=== PATIENT | female | born 1960 | race Caucasian/White ===

== ENCOUNTER 2021-05-12 09:48 | Inpatient (IN) ==
--- NOTE | 2021-05-12 10:14 | Emergency Department Note ---
Impression & Plan Chest pain, Arm pain, Abnormal EKG ED Provider Note NAME: DAREN MYLES AGE: 60 SEX: F : 1960 ARRIVES VIA: Walk-In INFORMANT: Patient, ED PROVIDER(S): David Burns DO CHIEF COMPLAINT: Chest pain HPI: The patient is a 60-year-old female who presented to the emergency department for an evaluation of discomfort in her upper extremity. The patient describes right forearm discomfort which she describes a throbbing sensation. This began last evening overnight. She called her primary care physician and was referred to the emergency department for evaluation. The patient had a cardiac catheterization in [place] on the of this month. She states at that time she had coronary artery disease and the culprit lesion was stented however they did have other abnormalities that required stenting that they were going to do on follow-up but she had received too high of a dye load and this was deferred until the patient came home. She states that she was started on all new medications. Previously she had no medical history and was on no medications. She was started on Brilinta as well as a beta-thanh. She has been compliant with her outpatient medications. She denies having any lower extremity swelling or pain. She denies having any difficulty breathing or nausea at this time. She states the symptoms are similar to when she had a cardiac event in [place]. ROS: See above HPI for pertinent positives & negatives. A total of 10 systems reviewed and were otherwise negative. PAST MEDICAL HISTORY: See Below PAST SURGICAL HISTORY: See Below FAMILY HISTORY: See Below SOCIAL HISTORY: See Below HOME MEDICATIONS: See Below ALLERGIES: See Below VITALS: See Below PHYSICAL EXAMINATION: GENERAL: Patient is awake alert in no acute distress patient is resting comf ortably and showing no signs of anxiety EYES: The conjunctivae are clear. The pupils are round and reactive. EARS, NOSE, MOUTH AND THROAT: The nose is without any evidence of any deformity. NECK: The neck is nontender and supple. RESPIRATORY: Normal respiratory effort is noted there is no evidence of wheezing rhonchi or rales CARDIOVASCULAR: Regular rate and rhythm noted there no murmurs rubs or gallops normal S1 normal S2. GASTROINTESTINAL: The abdomen is soft. Abdomen is nontender. MUSCULOSKELETAL/EXTREMITIES: There is no evidence of gross deformity full range of motion is noted in the hips and shoulders. SKIN: There is no obvious evidence of any rash. There are no petechiae, pallor or cyanosis noted. Pulses are symmetric in both wrist. There is ecchymosis noted over the right wrist especially over the distal forearm. There is no bruit noted to auscultation over the right wrist. NEUROLOGIC: Patient is awake alert and oriented x3. MEDICAL DECISION MAKING: The patient is a 60-year-old female who presented to emergency department for an evaluation of upper extremity pain. The patient had similar pain in the past which turned out to be an NSTEMI. The patient had a cardiac catheterization with stenting 7 days ago. The patient presented to the emergency department today because of ongoing symptoms which were similar to her previous NSTEMI. Her EKG shows some abnormalities which could be consistent with her recent cardiac event but she also has a history of a coronary artery lesion that was not stented. For this reason I discussed her case with the on-call [facility]. They have agreed to evaluate the patient in the emergency department. Triage Nursing notes reviewed. Prior medical records reviewed Vital Signs: reviewed and remarkable for no significant abnormalities Differential diagnosis: Cardiac ischemia, aortic dissection, pulmonary embolism, pneumothorax, pneumonia, pericarditis, myocarditis, esophageal rupture, GERD, cholecystitis, pancreatitis, musculoskeletal, as well as other pathologies. ER treatment provided: See below Diagnostics interpreted by me: ECG: EKG was obtained in the emergency department. My interpretation is normal sinus rhythm at 61 bpm. There is no ectopy. Inferior and low lateral ST depressions with T wave versions were noted. This was compared to a tracing from January 15, 2001. The changes are new compared to the earlier tracing. Cardiac Monitoring: An order was placed for continuous cardiac monitoring. The monitor shows a rate of 98 bpm with sinus rhythm. Laboratory studies: As stated above and show below. Imaging studies: See below Consultation(s): I discussed this case with Lary who is on-call for the [facility] group Past Med/Surg History Medical History (Updated 05/12/21 @ 16:09 by David Burns DO) Coronary artery disease Surgical History (Updated 05/12/21 @ 14:05 by Karon Lewis PA-C) History of cardiac catheterization History of coronary artery stent placement Family History (Updated 05/12/21 @ 14:07 by Karon Lewis PA-C) Father Coronary heart disease Lung cancer Cerebral aneurysm Social History Smoking Status: Former smoker Preferred Language: Guamanian Feels Safe at Home: Yes Allergies Allergies Allergy/AdvReac Type Severity Reaction Status Date / Time codeine Allergy Vomiting Verified 05/12/21 10:49 Home Meds Home Medications Medication Instructions Recorded Confirmed aspirin 81 mg chewable tablet 81 mg PO QAM 05/12/21 05/12/21 atorvastatin 40 mg tablet 40 mg PO HS 05/12/21 05/12/21 [id number] 333 mg-133 1 tab PO BID 05/12/21 05/12/21 mg-8.3 mg tablet metoprolol tartrate 50 mg tablet 25 mg PO BID 05/12/21 05/12/21 ticagrelor 90 mg tablet (Brilinta) 90 mg PO BID 05/12/21 05/12/21 Results & Data (ED) Vital Signs Vital Signs - 24 hr 05/12/21 09:55 05/12/21 10:25 05/12/21 11:00 Temperature 36.4 C L Temperature Source Temporal Artery Scan Pulse Rate 67 Pulse Rate [Apical] 62 55 L Pulse Rhythm Regular Pulse Strength Normal Respiratory Rate 18 17 18 Respiratory Effort / Characteristics Non-Labored Spontaneous Respiratory Depth Normal Respiratory Pattern Regular Blood Pressure 126/85 Blood Pressure [Right Arm] 141/92 H 129/77 Blood Pressure Mean 98 Blood Pressure Mean [Right Arm] 108 94 Blood Pressure Position Sitting Pulse Oximetry 100 99 99 Oxygen Delivery Method Room Air Room Air Room Air Sepsis Recent Fever Within 48 Hours No Sepsis New/Unexplained Change in Mental Status No Sepsis Action Taken by Nursing No Action Required Home Medications Current Medication List: was personally reviewed by me Laboratory Data Attestation: I reviewed the patient's lab results. Result diagrams: 05/12/21 10:25 05/12/21 12:21 Lab Results 05/12/21 05/12/21 05/12/21 Range/Units 10:25 10:25 10:25 WBC 5.38 (4.8-10.8) K/uL RBC 4.41 (4.2-5.4) M/uL Hgb 14.1 (12.0-16.0) g/dL Hct 41.2 (37-47) % MCV 93.4 (80-100) fL MCH 32.0 (25-34) pg MCHC 34.2 (32-36) g/dL RDW Std Deviation 38.7 (36.4-46.3) fL RDW Coeff of Tylor 11.4 L (11.5-14.5) % Plt Count 372 (130-400) K/uL MPV 10.0 (7.4-10.4) fL Immature Gran % (Auto) 0.2 % Neut % (Auto) 64.2 % Lymph % (Auto) 25.5 % [place] % (Auto) 8.6 % Eos % (Auto) 1.1 % Baso % (Auto) 0.4 % Neut # (Auto) 3.46 (1.4-6.5) K/uL Lymph # (Auto) 1.37 (1.2-3.4) K/uL [place] # (Auto) 0.46 (0.11-0.59) K/uL Eos # (Auto) 0.06 (0-0.5) K/uL Baso # (Auto) 0.02 (0-0.2) K/uL Immature Gran # (Auto) 0.01 (0.00-0.02) K/uL PT Cancelled INR Cancelled APTT Cancelled PTT Ratio Cancelled Sodium 137 (136-145) mmol/L Potassium TNP Chloride 105 (98-107) mmol/L Carbon Dioxide 24 (21-32) mmol/L Anion Gap 8 (3-11) BUN 14 (6-23) mg/dl Creatinine 0.82 (0.6-1.2) mg/dl Est Cr Clr Drug Dosing 78.6 ml/min Est GFR ( Amer) 90.8 ml/min Est GFR (Non-Af Amer) 78.3 ml/min BUN/Creatinine Ratio 17.1 (10-20) Glucose 96 (70-99(Fasting)) mg/dl Calcium 9.9 (8.5-10.1) mg/dl Total Bilirubin 0.6 (0.2-1.0) mg/dl AST TNP ALT 25 (7-52) U/L Alkaline Phosphatase 71 (34-104) U/L Total Creatine Kinase 56 (26-192) U/L Troponin I 0.04 (0-0.04) ng/ml Total Protein 8.0 (6.0-8.3) gm/dl Albumin 4.7 (3.4-5.0) gm/dl Globulin 3.3 (2.5-4.0) gm/dl Albumin/Globulin Ratio 1.4 (0.9-2) Lipase 40 (11-82) U/L SARS-CoV-2, RNA, NAAT (NEGATIVE) 05/12/21 05/12/21 05/12/21 Range/Units 10:29 12:21 12:21 WBC (4.8-10.8) K/uL RBC (4.2-5.4) M/uL Hgb (12.0-16.0) g/dL Hct (37-47) % MCV (80-100) fL MCH (25-34) pg MCHC (32-36) g/dL RDW Std Deviation (36.4-46.3) fL RDW Coeff of Tylor (11.5-14.5) % Plt Count (130-400) K/uL MPV (7.4-10.4) fL Immature Gran % (Auto) % Neut % (Auto) % Lymph % (Auto) % [place] % (Auto) % Eos % (Auto) % Baso % (Auto) % Neut # (Auto) (1.4-6.5) K/uL Lymph # (Auto) (1.2-3.4) K/uL [place] # (Auto) (0.11-0.59) K/uL Eos # (Auto) (0-0.5) K/uL Baso # (Auto) (0-0.2) K/uL Immature Gran # (Auto) (0.00-0.02) K/uL PT 10.4 INR 1.0 APTT 27.3 PTT Ratio 1.0 Sodium (136-145) mmol/L Potassium 4.3 Chloride (98-107) mmol/L Carbon Dioxide (21-32) mmol/L Anion Gap (3-11) BUN (6-23) mg/dl Creatinine (0.6-1.2) mg/dl Est Cr Clr Drug Dosing ml/min Est GFR ( Amer) ml/min Est GFR (Non-Af Amer) ml/min BUN/Creatinine Ratio (10-20) Glucose (70-99(Fasting)) mg/dl Calcium (8.5-10.1) mg/dl Total Bilirubin (0.2-1.0) mg/dl AST 23 ALT (7-52) U/L Alkaline Phosphatase (34-104) U/L Total Creatine Kinase (26-192) U/L Troponin I (0-0.04) ng/ml Total Protein (6.0-8.3) gm/dl Albumin (3.4-5.0) gm/dl Globulin (2.5-4.0) gm/dl Albumin/Globulin Ratio (0.9-2) Lipase (11-82) U/L SARS-CoV-2, RNA, NAAT NEGATIVE (NEGATIVE) 05/12/21 Range/Units 12:21 WBC (4.8-10.8) K/uL RBC (4.2-5.4) M/uL Hgb (12.0-16.0) g/dL Hct (37-47) % MCV (80-100) fL MCH (25-34) pg MCHC (32-36) g/dL RDW Std Deviation (36.4-46.3) fL RDW Coeff of Tylor (11.5-14.5) % Plt Count (130-400) K/uL MPV (7.4-10.4) fL Immature Gran % (Auto) % Neut % (Auto) % Lymph % (Auto) % [place] % (Auto) % Eos % (Auto) % Baso % (Auto) % Neut # (Auto) (1.4-6.5) K/uL Lymph # (Auto) (1.2-3.4) K/uL [place] # (Auto) (0.11-0.59) K/uL Eos # (Auto) (0-0.5) K/uL Baso # (Auto) (0-0.2) K/uL Immature Gran # (Auto) (0.00-0.02) K/uL PT INR APTT PTT Ratio Sodium (136-145) mmol/L Potassium Chloride (98-107) mmol/L Carbon Dioxide (21-32) mmol/L Anion Gap (3-11) BUN (6-23) mg/dl Creatinine (0.6-1.2) mg/dl Est Cr Clr Drug Dosing ml/min Est GFR ( Amer) ml/min Est GFR (Non-Af Amer) ml/min BUN/Creatinine Ratio (10-20) Glucose (70-99(Fasting)) mg/dl Calcium (8.5-10.1) mg/dl Total Bilirubin (0.2-1.0) mg/dl AST ALT (7-52) U/L Alkaline Phosphatase (34-104) U/L Total Creatine Kinase (26-192) U/L Troponin I 0.04 (0-0.04) ng/ml Total Protein (6.0-8.3) gm/dl Albumin (3.4-5.0) gm/dl Globulin (2.5-4.0) gm/dl Albumin/Globulin Ratio (0.9-2) Lipase (11-82) U/L SARS-CoV-2, RNA, NAAT (NEGATIVE) Imaging Data Radiologist's Impression: Duplex Scan Upper Extremity Artery 05/12/21 10:02 US arterial duplex UE RT CLINICAL HISTORY: Right upper extremity pain. Recent heart catheter in the right radial artery COMPARISON: None FINDINGS:FINDINGS: Right right side: Subclavian artery: Triphasic flow is present. Axillary artery: Triphasic flow is present. Brachial artery: Triphasic flow is present. Radial artery: Triphasic flow is present. Ulnar artery: Triphasic flow is present. IMPRESSION: No evidence for significant atherosclerotic plaque or flow-limiting stenosis based on velocity criteria. There is no evidence for a pseudoaneurysm involving the right radial artery. ACT 112: Negative or not required by law. Electronically signed by: Babar Martinez M.D. 05/12/2021 12:16 PM Chest X-Ray 05/12/21 10:03 XR chest 1V portable HISTORY: 60 years-old Female Chest Pain atypical chest pain COMPARISON: None TECHNIQUE: Portable AP view of the chest FINDINGS: Cardiac silhouette is upper limits of normal in size. Coronary arterial stent projects over the right heart border. No pneumothorax, pleural effusion, airspace consolidation or overt pulmonary edema. Bones of the chest appear grossly intact. IMPRESSION: No acute process. ACT 112: Negative or not required by law. The above report was generated using voice recognition software. It may contain grammatical, syntax or spelling errors. Electronically signed by: Jamar House M.D. 05/12/2021 10:57 AM Discharge Plan Visit Data Chief Complaint: Arm Pain Stated Complaint: RECENT STENT PLACEMENT, ARM PAIN ED Provider: David Burns Discharge Problem: Chest pain, Arm pain, Abnormal EKG Patient Disposition: Being Evaluated by Hospitalist Discharge Instructions Interventions: ED Discharge Assessment Last Done: 05/12/21 13:32
[2021-05-12 10:49] LABS: Basophils # (auto) 0.02 K/uL (0-0.2); Basophils % (auto) 0.4 %; Eosinophils # (auto) 0.06 K/uL (0-0.5); Eosinophils % (auto) 1.1 %; Hematocrit (blood only) 41.2 % (37-47); Hemoglobin 14.1 g/dL (12.0-16.0); Immature Granulocytes # (auto) 0.01 K/uL (0.00-0.02); Immature Granulocytes % (auto) 0.2 %; Lymphocytes # (auto) 1.37 K/uL (1.2-3.4); Lymphocytes % (auto) 25.5 %; Mean Corpuscular Hgb Conc 34.2 g/dL (32-36); Mean Corpuscular Volume 93.4 fL (80-100); Monocytes # (auto) 0.46 K/uL (0.11-0.59); Monocytes % (auto) 8.6 %; Neutrophils # (auto) 3.46 K/uL (1.4-6.5); Neutrophils % (auto) 64.2 %; Platelet Count 372 K/uL (130-400); RDW Coefficient of Variation 11.4 % (11.5-14.5); RDW Standard Deviation 38.7 fL (36.4-46.3); Red Blood Count 4.41 M/uL (4.2-5.4); White Blood Count 5.38 K/uL (4.8-10.8)
--- NOTE | 2021-05-12 10:58 | XRay Report ---
XR chest 1V portable HISTORY: 60 years-old Female Chest Pain atypical chest pain COMPARISON: None TECHNIQUE: Portable AP view of the chest FINDINGS: Cardiac silhouette is upper limits of normal in size. Coronary arterial stent projects over the right heart border. No pneumothorax, pleural effusion, airspace consolidation or overt pulmonary edema. Chirs lubna of the chest appear grossly intact. IMPRESSION: No acute process. ACT 112: Negative or not required by law. The above report was generated using voice recognition software. It may contain grammatical, syntax o r spelling errors. Electronically signed by: Jamar House M.D. 05/12/2021 10:57 AM
[2021-05-12 11:14] LABS: Troponin I 0.04 ng/ml (0-0.04)
[2021-05-12 11:21] LABS: Alanine Aminotransferase 25 U/L (7-52); Albumin Globulin Ratio 1.4 (0.9-2); Albumin Level 4.7 gm/dl (3.4-5.0); Alkaline Phosphatase 71 U/L (34-104); Anion Gap 8 (3-11); BUN Creatinine Ratio 17.1 (10-20); Bilirubin,Total 0.6 mg/dl (0.2-1.0); Blood Urea Nitrogen 14 mg/dl (6-23); Calcium 9.9 mg/dl (8.5-10.1); Carbon Dioxide 24 mmol/L (21-32); Chloride 105 mmol/L (98-107); Creatine Kinase 56 U/L (26-192); Creatinine Clr Calc Pharmacy 78.6 ml/min; Est GFR (African American) 90.8 ml/min; Est GFR (Non-African American) 78.3 ml/min; Globulin 3.3 gm/dl (2.5-4.0); Glucose 96 mg/dl (70-99(Fasting)); Lipase 40 U/L (11-82); Sodium 137 mmol/L (136-145)
--- NOTE | 2021-05-12 12:18 | Ultrasound Report ---
US arterial duplex UE RT CLINICAL HISTORY: Right upper extremity pain. Recent heart catheter in the right radial artery COMPARISON: None FINDINGS:FINDINGS: Right right side: Subclavian artery: Triphasic flow is present. Axillary artery: Triphasic flow is present. Brachial artery: Triphasic flow is present. Radial artery: Triphasic flow is present. Ulnar artery: Triphasic flow is present. IMPRESSION: No evidence for significant atherosclerotic plaque or flow-limiting stenosis based on cecille ocity criteria. There is no evidence for a pseudoaneurysm involving the right radial artery. ACT 112: Negative or not required by law. Electronically signed by: Babar Martinez M.D. 05/12/2021 12:16 PM
--- NOTE | 2021-05-12 12:34 | History & Physical Report ---
Date of Service May 12, 2021 Assessment & Plan (1) Right upper limb pain: (2) S/P cardiac cath: (3) Quit using tobacco in remote past: (4) HLD (hyperlipidemia): (5) Coronary artery disease: Plan: - Admit to tele for observation for r/o - Pt with hx of cardiac cath recently where RCA was stented due to 99% stenosis. Placed on management with ASA 81 mg daily, Atorvastatin 40 mg daily, Brillinta 90 mg BID, Metoprolol 25 mg BID. - Trend cardiac biomarkers, initial set was negative at 0.04 - EKG reviewed as above showing ST wave inversions in inferior and lateral leads but difficult to determine if this is new or unchanged from last week. - Consult cardiology -- Will make NPO in case needs for repeat cardiac cath - likely today vs tomorrow - cards to check OR board - Continue asa and brillinta, no heparin IV as no symptoms currently - appreciate recs. - Await outside records for last Echo, no need to repeat for now - PT/OT consulted - Check lipid panel and A1C for completeness - Remote tobacco use with 20 pack year hx, recently on and off use of tobacco, last cigarette was weeks ago. Had been using nicotine lozenges. Cessation encouraged at bedside DVT ppx: teds, asa, brillinta, ambulatory CODE: Full Dispo: From home, likely to remain in the hospital x 1-2 days. History of Present Illness Chief Complaint: RUE pain Primary Care Provider: Vidya Bautista PA-C This is a 60 yo F who follows with the [facility]. About 2 weeks ago the patient noticed intermittent developing RUE pain which went down her shoulder into the wrist. This occurs at rest, and while she is sleeping. She went on vacation to [facility] with her daughter. Due to worsening symptoms in the RUE she sought care. She presented to [facility] May 03 and transferred to a larger facility for needs for cardiac cath later that evening. There she was diagnosed with CAD, NSTEMI with 99% occlusion in the RCA during cardiac catheterization, where RONI x 2 3.0 = 30 mm and 3.5 x 30 mm were placed. Pt reports another lesion (unknown) was 70% blocked, but due to being loaded with dye they could not stent this at the same time. During procedure a temporary pacemaker was placed at the right groin, which is now very bruised but improving. Her symptoms improved by May 05 when she was discharged and traveled home this past weekend. Last evening her symptoms started again when she was sleeping. Pt noticed her arms were crossed while she was lying on her side, and attempted to reposition but continued to have the pain. It seems to go up from her wrist into the shoulder. Her wrist is bruised s/p cath but improving, nonswollen, and without redness. She feels this pain is very similar to the way it was prior to her cardiac cath a week ago. Pt denies any other symptoms including SOB, fever, chills, sweats, chest pain, palpitations, flutter, thornton, dizziness/lightheadedness. Her concern today is regarding the lesions that was not stented last week. She took all medications this morning including brillinta, asa, and metoprolol. Statin is taken in the evening. Her daughter is present with her at bedside and supports the hx. She has a disc from the last hospital stay with what appears to be the cardiac cath procedure on it. She does not have a discharge summary because [facility] An ultrasound of the RUE was conducted in the ER here to rule out pseudoaneurysm and was negative for such. Her initial troponin in undetectable. 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 She has previous remote smoking hx, and recently was using nicotine replacement to help get off cigarrettes again. The last time she smoked was weeks ago. Once a week on Sunday she enjoys having a martini with her friends. Surgical Hx: cervix cone biopsy procedure, no other surgeries. Family Hx: Father had cerebral aneurysm in his 40s, cardiac bypass in his mid-late 50s, of lung cancer 8 years ago Mother : A&W, arthritis Sister: A&W, no known medical issues Allergies Allergy/AdvReac Type Severity Reaction Status Date / Time codeine Allergy Vomiting Verified 05/12/21 10:49 Home Medications Medication Instructions Recorded Confirmed Type aspirin 81 mg chewable tablet 81 mg PO QAM 05/12/21 05/12/21 History atorvastatin 40 mg tablet 40 mg PO HS 05/12/21 05/12/21 History [id number] 333 mg-133 1 tab PO BID 05/12/21 05/12/21 History mg-8.3 mg tablet metoprolol tartrate 50 mg tablet 25 mg PO BID 05/12/21 05/12/21 History ticagrelor 90 mg tablet (Brilinta) 90 mg PO BID 05/12/21 05/12/21 History Past Med/Surg History Medical History (Updated 05/12/21 @ 14:05 by Karon Lewis PA-C) Coronary artery disease Surgical History (Updated 05/12/21 @ 14:05 by Karon Lewis PA-C) History of cardiac catheterization History of coronary artery stent placement Family History (Updated 05/12/21 @ 14:07 by Karon Lewis PA-C) Father Coronary heart disease Lung cancer Cerebral aneurysm Social History Smoking Status: Former smoker Preferred Language: Belarusian Feels Safe at Home: Yes Review of Systems Review of Systems: Constitutional: No fever, sweats or chills Eyes: No diplopia, no worsening or blurred vision ENT: normal hearing, no trouble swallowing Respiratory: No cough, sputum, dyspnea at rest or on exertion Cardiovascular: No chest pain, tightness or palpitations Abdomen: No pain, nausea, vomiting, diarrhea or constipation Musculoskeletal: No joint pain, calf pain, swelling Neurologic: No weakness, numbness/tingling, or balance problems Psychiatric: No anxiety or depression Skin: No rash or itch Physical Exam Physical Exam: General: awake, alert, no apparent distress Head: Normocephalic, atraumatic ENT: PERRL, EOMI, no pharyngeal exudate, mucous membranes moist Chest: Clear to auscultation, on room air, no adventitious breath sounds Cardiac: Regular rate and rhythm, no murmur, no JVD, normal peripheral pulses, good capillary refill, R wrist with ecchymosis yellowing, no erythema, no edema. : R femoral region with significant ecchymosis s/p pacemaker placement during cardiac cath. Abdominal: NABS x 4 quadrants, soft, nondistended, nontender to palpation, no rebound or guarding Extremities: As above re R wrist. Normal inspection, no peripheral edema or erythema, calfs nontender to palpation Psych: Normal mood and affect Neuro: AAO x 3, strength intact bilaterally and rated 5/5, no motor deficits, speech is clear, no peripheral sensory deficits Results & Data [facility] Vital Signs (Past 12 Hours) Vital Signs Temp Pulse Pulse Resp BP BP Pulse Ox 05/12/21 11:00 55 L 18 129/77 99 05/12/21 10:25 62 17 141/92 H 99 05/12/21 09:55 36.4 C L 67 18 126/85 100 Laboratory Results 05/12/21 05/12/21 05/12/21 12:21 12:21 12:21 WBC RBC Hgb Hct MCV MCH MCHC RDW Std Deviation RDW Coeff of Tylor Plt Count MPV Immature Gran % (Auto) Neut % (Auto) Lymph % (Auto) Ida % (Auto) Eos % (Auto) Baso % (Auto) Neut # (Auto) Lymph # (Auto) Ida # (Auto) Eos # (Auto) Baso # (Auto) Immature Gran # (Auto) PT 10.4 INR 1.0 APTT 27.3 PTT Ratio 1.0 Sodium Potassium 4.3 Chloride Carbon Dioxide Anion Gap BUN Creatinine Est Cr Clr Drug Dosing Est GFR ( Amer) Est GFR (Non-Af Amer) BUN/Creatinine Ratio Glucose Calcium Total Bilirubin AST 23 ALT Alkaline Phosphatase Total Creatine Kinase Troponin I 0.04 Total Protein Albumin Globulin Albumin/Globulin Ratio Lipase SARS-CoV-2, RNA, NAAT 05/12/21 05/12/21 05/12/21 10:29 10:25 10:25 WBC RBC Hgb Hct MCV MCH MCHC RDW Std Deviation RDW Coeff of Tylor Plt Count MPV Immature Gran % (Auto) Neut % (Auto) Lymph % (Auto) Ida % (Auto) Eos % (Auto) Baso % (Auto) Neut # (Auto) Lymph # (Auto) Ida # (Auto) Eos # (Auto) Baso # (Auto) Immature Gran # (Auto) PT Cancelled INR Cancelled APTT Cancelled PTT Ratio Cancelled Sodium 137 Potassium TNP Chloride 105 Carbon Dioxide 24 Anion Gap 8 BUN 14 Creatinine 0.82 Est Cr Clr Drug Dosing 78.6 Est GFR ( Amer) 90.8 Est GFR (Non-Af Amer) 78.3 BUN/Creatinine Ratio 17.1 Glucose 96 Calcium 9.9 Total Bilirubin 0.6 AST TNP ALT 25 Alkaline Phosphatase 71 Total Creatine Kinase 56 Troponin I 0.04 Total Protein 8.0 Albumin 4.7 Globulin 3.3 Albumin/Globulin Ratio 1.4 Lipase 40 SARS-CoV-2, RNA, NAAT NEGATIVE 05/12/21 10:25 WBC 5.38 RBC 4.41 Hgb 14.1 Hct 41.2 MCV 93.4 MCH 32.0 MCHC 34.2 RDW Std Deviation 38.7 RDW Coeff of Tylor 11.4 L Plt Count 372 MPV 10.0 Immature Gran % (Auto) 0.2 Neut % (Auto) 64.2 Lymph % (Auto) 25.5 Ida % (Auto) 8.6 Eos % (Auto) 1.1 Baso % (Auto) 0.4 Neut # (Auto) 3.46 Lymph # (Auto) 1.37 Ida # (Auto) 0.46 Eos # (Auto) 0.06 Baso # (Auto) 0.02 Immature Gran # (Auto) 0.01 PT INR APTT PTT Ratio Sodium Potassium Chloride Carbon Dioxide Anion Gap BUN Creatinine Est Cr Clr Drug Dosing Est GFR ( Amer) Est GFR (Non-Af Amer) BUN/Creatinine Ratio Glucose Calcium Total Bilirubin AST ALT Alkaline Phosphatase Total Creatine Kinase Troponin I Total Protein Albumin Globulin Albumin/Globulin Ratio Lipase SARS-CoV-2, RNA, NAAT Diagnostic Findings Duplex Scan Upper Extremity Artery 05/12/21 10:02 US arterial duplex UE RT CLINICAL HISTORY: Right upper extremity pain. Recent heart catheter in the r ight radial artery COMPARISON: None FINDINGS:FINDINGS: Right right side: Subclavian artery: Triphasic flow is present. Axillary artery: Triphasic flow is present. Brachial artery: Triphasic flow is present. Radial artery: Triphasic flow is present. Ulnar artery: Triphasic flow is present. IMPRESSION: No evidence for significant atherosclerotic plaque or flow-limiting stenosis based on velocity criteria. There is no evidence for a pseudoaneurysm involving the right radial artery. ACT 112: Negative or not required by law. Electronically signed by: Babar Martinez M.D. 05/12/2021 12:16 PM Chest X-Ray 05/12/21 10:03 XR chest 1V portable HISTORY: 60 years-old Female Chest Pain atypical chest pain COMPARISON: None TECHNIQUE: Portable AP view of the chest FINDINGS: Cardiac silhouette is upper limits of normal in size. Coronary arterial stent projects over the right heart border. No pneumothorax, pleural effusion, airspace consolidation or overt pulmonary edema. Bones of the chest appear grossly intact. IMPRESSION: No acute process. ACT 112: Negative or not required by law. The above report was generated using voice recognition software. It may contain grammatical, syntax or spelling errors. Electronically signed by: Jamar House M.D. 05/12/2021 10:57 AM ECG Additional Comments: 12-MAY-2021 10:08:28 [facility]-EDSTAT ROUTINE RETRIEVAL Normal sinus rhythm ST & T wave abnormality, consider inferior ischemia ST & T wave abnormality, consider anterior ischemia Abnormal ECG When compared with ECG of 12-JAN-2001 22:08, Questionable change in QRS axis T wave inversion more evident in Inferior leads T wave inversion now evident in Anterior leads 25mm/s10mm/[id number] 241CID: 16Unconfirmed Vent. rate 61 BPM AK interval 174 ms QRS duration 74 ms QT/QTc 424/426 ms Code Status & VTE Plan Code Status Full code - discussed with the patient at bedside Supervising Physician Co-Signing Physician Notes It is a 60-year-old female with history of coronary artery disease, former tobacco use who recently had PCI to RCA with drug-eluting stent X2 in [place] presents with history of right arm pain at catheter site which has been gradually worsening and has been intermittent, radiating,. Patient states having similar prior to initial cardiac catheterization but at the time was associated with chest pain. Currently she denies any chest pain. Also denies any nausea, vomiting, shortness of breath, dizziness, diaphoresis. Patient was informed that she would require a staged PCI given inability to complete PCI for a 70% occluded artery due to dye load. Please review HPI for complete treatment supplementation. Patient has been taking her medications regularly including aspirin, Brilinta, metoprolol, statin. Blood work is unremarkable including troponins. EKG showed T wave inversions in inferolateral anterior leads concerning for NSTEMI. No prior EKG available for comparison. Chest x-ray showed no acute abnormality. Doppler study is unremarkable as well. On Exam patient is moderately built and nourished, no apparent distress, normocephalic atraumatic, EOMI, normal breath sounds, clear to auscultation, S1-S2, no murmur, no pedal edema, abdomen soft, nontender, normal bowel sounds, alert, awake, oriented, grossly no focal deficits. Right wrist catheter site ecchymotic, tender on palpation. Patient is being admitted for management of chest pain rule out ACS. We will continue her home medications including aspirin, statin, metoprolol, Brilinta. Consider IV heparin if patient develops chest pain, and develops troponin elevation. Will request to obtain records from [place]. Check resting echo. Will repeat EKG with chest pain in the morning. I personally reviewed the record. Patient is interviewed and examined at bedside. Patient's care is coordinated with Karon Lewis PA-C. Please refer to the documentation above for details of patient's presentation and for discussion of other issues.
[2021-05-12 12:57] LABS: Partial Thromboplastin Time 27.3 Seconds (21.0-31.0); Prothrombin Time 10.4 Seconds (9.0-12.0)
[2021-05-12 13:14] LABS: Potassium 4.3 mmol/L (3.5-5.1)
[2021-05-12] MEDS ORDERED: ONDANSETRON INJ 2 MG/ML 2 ML VIAL IV PRN (13:32)
[2021-05-12] MEDS ORDERED: ACETAMINOPHEN 325 MG TAB PO PRN (13:32)
[2021-05-12] MEDS ORDERED: NITROGLYCERIN SL 0.4 MG/TAB TAB SL PRN (13:37)
--- NOTE | 2021-05-12 14:28 | Electrocardiogram Report ---
Test Reason : Blood Pressure : / mmHG Vent. Rate : 061 BPM Atrial Rate : 061 BPM P-R Int : 174 ms QRS Dur : 074 ms QT Int : 424 ms P-R-T Axes : 025 -03 -32 degrees QTc Int : 426 ms Normal sinus rhythm Abnormal ECG When compared with ECG of 12-JAN-2001 22:08, T wave inversion more evident in Inferior leads T wave inversion now evident in Anterior leads Confirmed by Pa Power ([id number]) on 05/12/2021 2:28:06 PM Referred By: Confirmed By:Pa Power
--- NOTE | 2021-05-12 17:11 | Cardiology Consultation ---
Date of Consultation May 12, 2021 Assessment & Plan (1) Arm pain: (2) Abnormal EKG: (3) Coronary artery disease: Per my interview, patient denies recent chest discomfort, but did have chest discomfort radiating to her arms bilaterally as well as disabling exertional shortness of breath which prompted her initial diagnosis and cardiac catheterization which took place on 05/05/2021. My initial impression is that her pain may be related to recovery from her catheterization access site rather than anginal equivalent. Her EKG has notable abnormalities, however we do not have access to her recent available baseline with records request in process. The patient did however have a disc of her recent catheterization films which were uploaded to the system and reviewed revealing findings of complex PCI of the RCA, with residual disease elsewhere in the LAD and circumflex coronaries. My initial impression is that the circumflex obtuse marginal disease can be managed medically. Plan to review the films with interventional cardiology with regards to revascularization of the LAD. In the meantime, patient to be admitted for further observation, serial troponin levels.. With no current acute anginal symptoms, and negative initial troponin, will hold off on systemic anticoagulation for now and continue aspirin, Brilinta, metoprolol, atorvastatin. An echocardiogram has been requested and will be reviewed. History of Present Illness Attending Physician: Silvano Rowland MD History of Present Illness Thi Moore is a 60-year-old female seen in cardiology consultation per the request of Lary Lewis PA-C of the [facility] for the evaluation of right arm pain with history of recent myocardial infarction and diagosis of multivessel coronary heart disease. The patient is accompanied by her daughter at the bedside. The patient typically follows with the [facility] clinic for her primary care. 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 The patient's history dates back to approximately 3 weeks ago when she started noticing waxing waning chest discomfort that she did not think was associated with aerobic exertion such as walking up a flight of stairs. In retrospect, her daughter does note that the patient was experiencing exertional shortness of breath. She went on vacation in [place], and while there developed progressive exertional chest pain and shortness of breath culminating in an episode of severe chest discomfort that radiated down both of her arms. She was taken to a small local hospital. The records are not available but per the patient's description she was diagnosed with either an acute myocardial infarction or acute coronary syndrome, and subsequently transferred to [facility] in [place], [place]. She underwent diagnostic cardiac catheterization there with findings of multivessel disease. She describes subsequent discussion with regards to bypass surgery or multivessel percutaneous revascularization, she elected for multivessel stenting. The patient underwent temporary pacemaker implantation in the right femoral vein, with cardiac catheterization otherwise pursued via right radial artery access and underwent complex PCI, rotational atherectomy, and stenting of a large area of the proximal into the late mid right coronary artery. She was counseled that she had a residual stenosis, but due to the amount of contrast already utilized, it was recommended that she recover, and pursue cardiology consultation once she returned to [place]. She had been referred to the [facility] in [place], and has a tentative outpatient visit there on 05/26/2021. In the meantime, today first thing in the morning she started experiencing waxing and waning pain in her right forearm and right wrist. The discomfort has subsided at this point, and it is not reproducible with moving her wrist, which the discomfort is in the location of an area of ecchymosis from her recent catheterization access. Allergies Allergy/AdvReac Type Severity Reaction Status Date / Time codeine Allergy Vomiting Verified 05/12/21 10:49 Home Medications Medication Instructions Recorded Confirmed Type aspirin 81 mg chewable tablet 81 mg PO QAM 05/12/21 05/12/21 History atorvastatin 40 mg tablet 40 mg PO HS 05/12/21 05/12/21 History [id number]-[id number]-[id number] 333 mg-133 1 tab PO BID 05/12/21 05/12/21 History mg-8.3 mg tablet metoprolol tartrate 50 mg tablet 25 mg PO BID 05/12/21 05/12/21 History ticagrelor 90 mg tablet (Brilinta) 90 mg PO BID 05/12/21 05/12/21 History Patient History Medical History Coronary artery disease Surgical History History of cardiac catheterization History of coronary artery stent placement Family History Father Coronary heart disease Lung cancer Cerebral aneurysm Social History Smoking Status: Former smoker Preferred Language: Lithuanian Feels Safe at Home: Yes Review of Systems Review of Systems: All systems reviewed & are unremarkable except as noted in HPI & below Physical Exam Physical Exam: Temp Pulse Resp BP Pulse Ox 36.4 C L 98 H 18 116/82 100 05/12/21 09:55 05/12/21 14:20 05/12/21 14:20 05/12/21 14:20 05/12/21 14:20 Constitutional: WD/WN, vitals as above Respiratory: normal respiratory effort, lungs clear to auscultation Cardiovascular: RRR, no murmur, no edema Gastrointestinal (Abdomen): normal bowel sounds, soft, nontender, no hepatosplenomegaly Musculoskeletal: Area of ecchymosis over the right radial artery access site, no significant hematoma Appropriate degree of ecchymosis at her right femoral vein access site, no hematoma Neurologic: PERRL, EOMI, accommodation nl, no face palsy, no dysarthria Results & Data ([facility]) Vital Signs (Past 12 Hours) Vital Signs Temp Pulse Pulse Resp BP BP Pulse Ox 05/12/21 14:20 98 H 18 116/82 100 05/12/21 13:00 65 20 139/93 99 05/12/21 11:00 55 L 18 129/77 99 05/12/21 10:25 62 17 141/92 H 99 05/12/21 09:55 36.4 C L 67 18 126/85 100 Laboratory Results Cardiac Enzymes 05/12/21 05/12/21 05/12/21 Range/Units 10:25 12:21 12:21 AST TNP 23 Troponin I 0.04 0.04 (0-0.04) ng/ml Coagulation 05/12/21 05/12/21 Range/Units 10:25 12:21 PT Cancelled 10.4 APTT Cancelled 27.3 CBC 05/12/21 Range/Units 10:25 WBC 5.38 (4.8-10.8) K/uL RBC 4.41 (4.2-5.4) M/uL Hgb 14.1 (12.0-16.0) g/dL Hct 41.2 (37-47) % Plt Count 372 (130-400) K/uL Neut # (Auto) 3.46 (1.4-6.5) K/uL Lymph # (Auto) 1.37 (1.2-3.4) K/uL [place] # (Auto) 0.46 (0.11-0.59) K/uL Eos # (Auto) 0.06 (0-0.5) K/uL Baso # (Auto) 0.02 (0-0.2) K/uL Comprehensive Metabolic Panel 05/12/21 05/12/21 Range/Units 10:25 12:21 Sodium 137 (136-145) mmol/L Potassium TNP 4.3 Chloride 105 (98-107) mmol/L Carbon Dioxide 24 (21-32) mmol/L BUN 14 (6-23) mg/dl Creatinine 0.82 (0.6-1.2) mg/dl Glucose 96 (70-99(Fasting)) mg/dl Calcium 9.9 (8.5-10.1) mg/dl AST TNP 23 ALT 25 (7-52) U/L Alkaline Phosphatase 71 (34-104) U/L Total Protein 8.0 (6.0-8.3) gm/dl Albumin 4.7 (3.4-5.0) gm/dl Intake and Output 05/12/21 05/12/21 05/12/21 06:59 14:59 22:59 Intake Total 0 / 0 Balance 0 / 0 Intake: Oral 0 / 0 Other: Weight 76 kg Weight Measurement Method Chair Scale Patient Weight 05/13/21 06:59 Weight 76 kg Diagnostic Findings EKG performed today 10:08 AM and reviewed independently reveals normal sinus rhythm at 61 bpm, T wave changes noted in the inferior and anterolateral precordial leads suggestive of ischemia versus completed infarction event Summary of radiology report, duplex of right upper extremity, no flow-limiting stenosis or evidence of pseudoaneurysm of right radial artery Chest x-ray no acute process per radiology report (1) Arm pain Laterality: right Qualified Code(s): M79.601 - Pain in right arm
[2021-05-12] MEDS: ATORVASTATIN 40 MG TAB PO SCH (21:22)
[2021-05-12] MEDS: METOPROLOL TARTRATE 25 MG TAB PO SCH (21:23)
[2021-05-12] MEDS: TICAGRELOR 90 MG TAB PO SCH (21:23)
[2021-05-13 05:54] LABS: Hematocrit (blood only) 38.2 % (37-47); Hemoglobin 13.3 g/dL (12.0-16.0); Mean Corpuscular Hemoglobin 32.9 pg (25-34); Mean Corpuscular Hgb Conc 34.8 g/dL (32-36); Mean Corpuscular Volume 94.6 fL (80-100); Mean Platelet Volume 9.7 fL (7.4-10.4); Platelet Count 343 K/uL (130-400); RDW Coefficient of Variation 11.6 % (11.5-14.5); RDW Standard Deviation 39.7 fL (36.4-46.3); Red Blood Count 4.04 M/uL (4.2-5.4); White Blood Count 6.28 K/uL (4.8-10.8)
[2021-05-13 06:04] LABS: Albumin Globulin Ratio 1.5 (0.9-2); Albumin Level 4.2 gm/dl (3.4-5.0); BUN Creatinine Ratio 20.6 (10-20); Bilirubin,Total 0.6 mg/dl (0.2-1.0); Calcium 9.3 mg/dl (8.5-10.1); Chol HDL Ratio 3.2 (0-5); Creatinine Clr Calc Pharmacy 94.7 ml/min; Est GFR (Non-African American) 95.7 ml/min; Globulin 2.8 gm/dl (2.5-4.0); Magnesium 2.2 mg/dl (1.7-2.4); Phosphorus 4.1 mg/dl (2.5-4.9); Potassium 3.9 mmol/L (3.5-5.1)
[2021-05-13 07:36] LABS: Estimated Average Glucose 108 mg/dl; Hemoglobin A1C 5.4 % (4.5-5.6)
[2021-05-13] MEDS: METOPROLOL TARTRATE 25 MG TAB PO SCH ×2 (08:57→20:11)
[2021-05-13] MEDS: MULTIVITAMIN TAB PO SCH (08:57)
[2021-05-13] MEDS: TICAGRELOR 90 MG TAB PO SCH ×2 (08:57→20:11)
[2021-05-13] MEDS: ASPIRIN 81 MG CHEW PO SCH (08:58)
[2021-05-13] MEDS ORDERED: SODIUM CHLORIDE 0.9% 1000ML 1,000 ML IV SCH (13:45)
--- NOTE | 2021-05-13 13:54 | Cardiology Progress Note ---
Date of Service May 13, 2021 Assessment & Plan (1) Right upper limb pain: (2) Coronary artery disease: (3) Abnormal EKG: Plan: Troponin negative x 4. EKG =SR with inferior ST , T wave changes, unchanged compared to prior yesterday, and from previous admission in [place]. Presenting symptom of right wrist and forearm pain , does not seem to be consistent with her prior anginal equivalent of chest pain radiating down both arms. Paper records received by fax after call placed by the undersigned to [place], [place]. Report of diagnostic cardiac catheterization performed there 05/05/21 describes 95% mid RCA stenosis, 90% mid LAD stenosis. Patient went on to have technically complex PCI , RONI to the RCA. Follow up of the LAD lesion recommended at time of discharge with recommendation for staged PCI of LAD made there. 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 Pt NPO for procedure today. Start NSS at 80 ml/hr. Received ASA and Brilinta this am. Tolerated contrast in past without reaction. Admission and Anticipated Discharge Date Admission Date: May 12, 2021 Subjective Patient seen in cardiology follow up of chief complaint of right wrist, forearm pain. Pt feels well. Denies chest pain or shortness of breath. No additional right wrist / arm pain. Review of Systems Review of Systems: All systems reviewed & are unremarkable except as noted in HPI & below Physical Exam Constitutional: WD/WN, vitals as above Respiratory: normal respiratory effort, lungs clear to auscultation Cardiovascular: RRR, no murmur, no edema mild ecchymosis of R wrist Gastrointestinal (Abdomen): normal bowel sounds, soft, nontender, no hepatosplenomegaly Neurologic: PERRL, EOMI, accommodation nl, no face palsy, no dysarthria Results & Data ([facility]) Vital Signs (Past 12 Hours) Vital Signs Pulse Resp BP Pulse Ox 05/13/21 08:58 77 12 142/84 H 05/13/21 08:00 62 17 05/13/21 06:00 51 L 16 05/13/21 04:50 64 22 152/88 H 98 05/13/21 03:30 58 L 14 98 Laboratory Results Cardiac Enzymes 05/12/21 05/12/21 05/13/21 Range/Units 12:21 19:39 05:08 AST 18 (13-39) U/L Troponin I 0.04 0.03 (0-0.04) ng/ml 05/13/21 Range/Units 05:08 AST (13-39) U/L Troponin I < 0.03 (0-0.04) ng/ml Lipids 05/13/21 Range/Units 05:08 Triglycerides 78 (0-150) mg/dl Cholesterol 112 (0-200) mg/dl HDL Cholesterol 35 mg/dl Cholesterol/HDL Ratio 3.2 (0-5) CBC 05/13/21 Range/Units 05:08 WBC 6.28 (4.8-10.8) K/uL RBC 4.04 L (4.2-5.4) M/uL Hgb 13.3 (12.0-16.0) g/dL Hct 38.2 (37-47) % Plt Count 343 (130-400) K/uL Comprehensive Metabolic Panel 05/13/21 Range/Units 05:08 Sodium 137 (136-145) mmol/L Potassium 3.9 (3.5-5.1) mmol/L Chloride 107 (98-107) mmol/L Carbon Dioxide 23 (21-32) mmol/L BUN 14 (6-23) mg/dl Creatinine 0.68 (0.6-1.2) mg/dl Glucose 90 (70-99(Fasting)) mg/dl Calcium 9.3 (8.5-10.1) mg/dl AST 18 (13-39) U/L ALT 20 (7-52) U/L Alkaline Phosphatase 62 (34-104) U/L Total Protein 7.0 (6.0-8.3) gm/dl Albumin 4.2 (3.4-5.0) gm/dl Diagnostic Findings Echo performed today, [facility]: Normal LV wall motion, LVEF 60-65% Mild TR Grade I diastolic dysfunction
[2021-05-13] MEDS ORDERED: HEPARIN (PORCINE) 1000 UNIT/ML 10 ML (CATH LAB USE ONLY) ONE (14:30)
[2021-05-13] MEDS ORDERED: MIDAZOLAM HCL 1 MG/ML 2ML VIAL ONE ×2 (14:30→15:36)
[2021-05-13] MEDS ORDERED: niCARdipine HCL INJ 2.5 MG/ML 10 ML AMP ONE (14:30)
[2021-05-13] MEDS ORDERED: NITROGLYCERIN/D5W 100MCG/ML 20ML SYR ONE (14:31)
[2021-05-13] MEDS ORDERED: fentaNYL citrate 100 MCG/2 ML VIAL ONE (14:31)
[2021-05-13] MEDS ORDERED: ADENOSINE IV SOLN 3 MG/ML 20 ML VIAL IV ONE (15:14)
--- NOTE | 2021-05-13 16:17 | Pre Anesthesia Assessment ---
Date of Service May 13, 2021 Pre Sedation Assessment Vital Signs Temp Pulse Pulse Resp BP BP Pulse Ox 05/13/21 16:05 68 16 134/83 99 05/13/21 14:00 66 16 05/13/21 12:00 54 L 16 05/13/21 10:00 51 L 17 05/13/21 08:58 77 72 12 142/84 H 142/84 H 96 05/13/21 08:00 62 17 05/13/21 06:00 51 L 16 05/13/21 04:50 64 22 152/88 H 98 05/13/21 03:30 58 L 14 98 05/12/21 21:30 98.8 F 74 20 128/79 97 05/12/21 18:00 76 21 128/89 95 Cardiovascular RRR, no murmur, no edema Respiratory normal respiratory effort, lungs clear to auscultation Pre-Sedation Airway Assessment Smoking Status: Former smoker Hx Sleep Apnea: No Hx Difficult Intubation: No Short, Thick Neck: No Thyromental Distance: > or= 3.5 Finger Breadths Oral Cavity: + WNL Mallampati Class: III ASA: ASA3 Procedure Planning Contraindications for Sedation: none Current Medications Reviewed: Yes Notes The planned sedation has been discussed with the patient. Informed Consent was obtained. I have identified the patient, determined the appropriateness of sedation and have assessed the patient immediately prior to the procedure. All medicine(s) and interventions are by my order.
--- NOTE | 2021-05-13 16:18 | Post Anesthesia Assessment ---
Date of Service May 13, 2021 Post Sedation Assessment Vital Signs Temp Pulse Pulse Resp BP BP Pulse Ox 05/13/21 16:05 68 16 134/83 99 05/13/21 14:00 66 16 05/13/21 12:00 54 L 16 05/13/21 10:00 51 L 17 05/13/21 08:58 77 72 12 142/84 H 142/84 H 96 05/13/21 08:00 62 17 05/13/21 06:00 51 L 16 05/13/21 04:50 64 22 152/88 H 98 05/13/21 03:30 58 L 14 98 05/12/21 21:30 98.8 F 74 20 128/79 97 05/12/21 18:00 76 21 128/89 95 Recovery Score Activity: Moves 4 extremities Respiration: Deep Breath/Cough Circulation: +/-20% PreAnes Value Consciousness: Fully Awake Oxygen Saturation: > 92% On Room Air Post Anesthesia Score: 10 Discharge Sedation Level of Care: Fast Track Phase II Post Sedation Plan On clinical assessment, the patient appears to have tolerated the sedation without complications. Patient is recovering as anticipated. Patient will continue to be monitored by nursing and may be discharged when sedation discharge criteria are met per below protocol. Upon Completions of procedure up to 15 minutes continue every 5 minute vital signs and the P.A.R. score; then discharge to a Phase I or Fast Track to Phase II per the following guidelines: * Discharge Patient to appropriate Phase II area if PAR is 8 or greater or return to pre- procedure baseline. The post - procedure orders will be as directed. * If PAR score is less than 8 or not return to pre-procedure baseline then patient will follow Phase I monitoring till PAR is reached for Phase II. The Phase I may be done in procedure room or may call to secure a Phase I area. * If naloxone or flumazenil are used for reversal, hold in Phase I for continued monitoring from when last reversal dose was given for a minimum of 60 minutes or longer pending the nurse and/or physician discretion of patient condition before discharge to Phase II. Please call the Sedation Physician to re-evaluate and complete post-note for discharge to Phase II area. Do NOT discharge from procedure sedation or Phase 1 until post- sedation evaluation note is complete by procedure /sedation MD Sedation Discharge Instructions to be given to the patient at discharge to home.
--- NOTE | 2021-05-13 16:25 | Cardiac Catheterization ---
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 Cardiac Status Clinical evaluation leading to the procedure CAD Presenation: Unstable angina Anginal Classification: CCS III Heart Failure: No Cardiogenic Shock within 24 Hours: No Cardiac Arrest within 24 Hours: No Imaging Studies Past 6 Months: Yes Stress Studies Past 6 Months: No Diagnostic Physicians Name: Tyson Sorensen MD Status: Elective Closure Device Percutaneous Entry Location: Radial Closure Device: Radial Band Recommendations: PCI without planned CABG Lesion Segment Name: mid LAD Culprit Artery: Yes Stenosis Prior to Rx (%): 70 Chronic Total Occlusion: No IVUS: No FFR: Yes Ratio: less than or equal to 0.75% Pre-Procedure LINA Flow: 3 Previously Treated Lesion: No Lesion Complexity: Non-High/Non-C Lesion Length (mm): 23 Thrombus Present: No Bifurcation Lesion: Yes Guidewire Across Lesion: Stenosis Post-Procedure (%): 0 Post-Procedure LINA Flow: 3 Devices(s) Deployed: Yes Yes Intraprocedure Events Significant Disection: No Perforation: No Cardiac Cath Procedure Full Procedure Date May 13, 2021 Pre-Procedure Diagnosis Pre-Procedure Diagnosis: CAD AUC Score AUC Score: 7 Post-Procedure Diagnosis Post-Procedure Diagnosis: Severe CAD and Successful PCI Procedure(s) Performed Procedure(s) Performed: Coronary Angiography, Left Heart Cath, Drug Eluting Stent and Fractional Flow [place] [employer] Supervisor Tyson Sorensen MD [employer] Worker(s) Castillo Estimated Blood Loss Estimated Blood Loss: 10 Medication(s) Medication(s): Fentanyl, Heparin, Lidocaine 1%, Nicardipine, Nitroglycerin and Versed Medication(s): Ticagrelor Summary of Findings Indication: Prior NSTEMI with PCI to RCA at outside hospital. Here for staged PCI of mid LAD Access: 6 Fr right radial artery Catheters: [place], EBU 3.5 guide Findings: LM -normal caliber, no significant disease LAD -medium caliber, calcified, 45% ostial, 60 to 70% mid segment disease extending across bifurcation of D2. Distal vessel without significant disease extends to apex. Circumflex -large caliber, 70% mid segment disease. Small OM1 60% proximal. 80% left PLB prior to bifurcation RCA -dominant, large caliber, proximal to distal stents widely patent. Remainder of vessel without significant disease LVEDP -4 --FFR/PCI -- Antithrombotic therapy: Heparin, ticagrelor Procedure: Left main cannulated with EBU 3.5 guide Ui Lead Developer 50 placed into medium D2 Whisper wire passed across lesion into distal LAD ACIST FFR catheter placed across mid LAD stenosis Pd/Pa 0.89 FFR 0.69 decision to proceed with PCI Mid LAD lesion predilated with 2.0 and 2.5 compliant balloons Dilated lesion stented with 2.5 x 26 mm Camron drug-eluting stent Stent post-dilated with 3.0 noncompliant balloon IC vasodilators administered for spasm Post procedure LINA 3 flow, stent well expanded with minimal residual stenosis. No significant branch vessel compromise or other complications. Arterial Closure: TR band Summary: 1. Severe multi-vessel coronary artery disease -45% ostial LAD, 70% mid LAD (FFR 0.69) 70% mid circumflex, 80% stenosis in mid left PLB 2. Normal intracardiac filling pressure 3. Successful PCI of mid LAD with single drug-eluting stent (2.5 x 26 mm Camron; postdilated with 3.5 NC) Recommendations: To PCU for continued monitoring Continue dual-antiplatelet therapy for at least 1 year Continue statin, and ASCVD risk factor modification Consult cardiac Rehab Hemodynamics Rest Ao:: 132/80/99 Final Ao: 117/66/87 LV: 107/4 Recommendations Recommendations: PCI without planned CABG Specimens Specimens: None Radiation Exposure (mGy) 604 Contrast (mls) 60 Fluids (cc crystalloids) Fluids (cc crystalloids): 170 Drains Drains: none Anesthesia moderate 2360-0510 Procedural Complication(s) None Disposition PCU I attest to the content of the Intraoperative Record and any orders documented therein. Any exceptions are noted below. [employer] Card Cath Procedure Codes Cardiac Catheterization Procedure 1: Cardiovascular Cath Procedures: 45280 Coronaries and LHC (+/-LV) Procedure 2: Cardiovascular Cath Procedures: 04700 (Doppler) Pressure Wire Moderate Sedation Procedure 1: Sedation/Anesthesia: 70620 Mod Sedation by the same physician;Init15 Min Child Age 5 & Up Procedure 2: Sedation/Anesthesia: 36626 Mod Sedation by the same physician; Ea [id number] Minutes Stenting Procedure 1: Cardiovascular Stent Procedures: 37312 Perc transcatheter placement of intracoronary stent(s), with ang PG Care Time/CCT Total # of Minutes Spent Total Time Spent with Patient: Total time spent is greater than 50% in coordination of care (as documented) at patient's floor/unit and/or counseling patient:
--- NOTE | 2021-05-13 17:01 | Electrocardiogram Report ---
Test Reason : Blood Pressure : / mmHG Vent. Rate : 066 BPM Atrial Rate : 066 BPM P-R Int : 182 ms QRS Dur : 082 ms QT Int : 416 ms P-R-T Axes : 076 046 -41 degrees QTc Int : 436 ms Normal sinus rhythm with sinus arrhythmia Abnormal ECG When compared with ECG of 12-MAY-2021 10:08, No significant change was found Confirmed by Gordo Higuera ([id number]) on 05/13/2021 5:01:12 PM Referred By: REFERRED SELF Confirmed By:Gordo Higuera
--- NOTE | 2021-05-13 18:50 | Hospitalist Progress Note ---
Date of Service May 13, 2021 Assessment & Plan (1) Right upper limb pain: (2) S/P cardiac cath: (3) Quit using tobacco in remote past: (4) HLD (hyperlipidemia): (5) Coronary artery disease: Plan: RUE pain Remote tobacco use with 20 pack year hx, recently on and off use of tobacco, last cigarette was weeks ago. Had been using nicotine lozenges. 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 Reports only mild pain at vascular access site on right UE Denied chest pain, Shortness of breath, cough Denied nausea, vomiting, abd pain, diarrhea, constipation Denied dysuria, freq, urgency Physical Exam Constitutional: + well hydrated; no acute distress Eyes: PERRL, conjunctivae normal, anicteric sclerae ENMT: external ear and nose normal, oropharynx normal Respiratory: normal respiratory effort, lungs clear to auscultation Cardiovascular: Rate/Rhythm: regular rate and regular rhythm S1 S2 Gastrointestinal (Abdomen): normal bowel sounds, soft, nontender, no hepatosplenomegaly Musculoskeletal: no cyanosis or clubbing, extremities motor strength 5/5 Neurologic: PERRL, EOMI, accommodation nl, no face palsy, no dysarthria Psychiatric: A+Ox3, euthymic affect Results & Data Results & Data ([facility]) Vital Signs (Past 12 Hours) Vital Signs Temp Pulse Pulse Resp BP BP Pulse Ox 05/13/21 17:39 37.1 C 05/13/21 17:22 36.8 C 60 20 151/88 H 98 05/13/21 16:45 67 16 128/75 98 05/13/21 16:30 68 16 133/89 98 05/13/21 16:15 63 16 140/80 97 05/13/21 16:05 68 16 134/83 99 05/13/21 14:00 66 16 05/13/21 12:00 54 L 16 05/13/21 10:00 51 L 17 05/13/21 08:58 77 72 12 142/84 H 142/84 H 96 05/13/21 08:00 62 17 Laboratory Results Abnormal lab results 05/13/21 05/13/21 Range/Units 05:08 05:08 RBC 4.04 L (4.2-5.4) M/uL BUN/Creatinine Ratio 20.6 H (10-20)
[2021-05-13] MEDS: ATORVASTATIN 40 MG TAB PO SCH (20:11)
[2021-05-14 05:46] LABS: Hematocrit (blood only) 36.7 % (37-47); Hemoglobin 12.6 g/dL (12.0-16.0); Mean Corpuscular Hemoglobin 32.3 pg (25-34); Mean Corpuscular Hgb Conc 34.3 g/dL (32-36); Mean Corpuscular Volume 94.1 fL (80-100); Mean Platelet Volume 9.6 fL (7.4-10.4); Platelet Count 350 K/uL (130-400); RDW Coefficient of Variation 11.6 % (11.5-14.5); RDW Standard Deviation 39.3 fL (36.4-46.3); White Blood Count 7.06 K/uL (4.8-10.8)
[2021-05-14 06:13] LABS: Albumin Globulin Ratio 1.4 (0.9-2); BUN Creatinine Ratio 21.2 (10-20); Bilirubin,Total 0.6 mg/dl (0.2-1.0); Calcium 9.3 mg/dl (8.5-10.1); Creatinine Clr Calc Pharmacy 97.6 ml/min; Est GFR (African American) 112.1 ml/min; Est GFR (Non-African American) 96.7 ml/min; Globulin 2.8 gm/dl (2.5-4.0); Potassium 3.8 mmol/L (3.5-5.1); Total Protein 6.8 gm/dl (6.0-8.3)
[2021-05-14] MEDS: MULTIVITAMIN TAB PO SCH (08:54)
[2021-05-14] MEDS: ASPIRIN 81 MG CHEW PO SCH (08:54)
[2021-05-14] MEDS: METOPROLOL TARTRATE 25 MG TAB PO SCH (08:54)
[2021-05-14] MEDS: TICAGRELOR 90 MG TAB PO SCH (08:54)
--- NOTE | 2021-05-14 13:09 | Cardiology Progress Note ---
Date of Service May 14, 2021 Assessment & Plan (1) Coronary artery disease: (2) S/P cardiac cath: (3) HLD (hyperlipidemia): Plan: LAD drug-eluting stent implanted without complication. Discussed importance of continuing dual antiplatelet therapy uninterrupted 1 year post HI/PCI. Discontinue Lopressor 25 mg twice daily. Recommend Toprol-XL 25 mg once daily at discharge. Continue other medications as previously ordered. Outpatient cardiology follow-up in 1-2 weeks. Patient states she is scheduled for follow- up with senior business process analyst in [place] via the [place]. Admission and Anticipated Discharge Date Admission Date: May 13, 2021 Subjective Patient seen and examined the bedside. Denies chest pain recurrent right arm pain overnight. LAD PCI performed yesterday without complication. Anxious for discharge. Tolerating current medications. Telemetry reveals sinus rhythm and sinus bradycardia. Heart rate trending down into the 40s overnight. Review of Systems Review of Systems: All systems reviewed & are unremarkable except as noted in Subjective Physical Exam Constitutional: well nourished; no acute distress and not ill appearing Respiratory: normal respiratory effort; no respiratory distress, no labored breathing and no retractions Cardiovascular: Rate/Rhythm: regular rate and regular rhythm Heart Sounds: normal S1 and normal S2; no murmur Vessels: radial pulses present (Right anterior wrist ecchymosis); no JVD and no carotid bruit Gastrointestinal (Abdomen): Inspection/Auscultation: abdomen normal to inspection and normal bowel sounds; abdomen not distended Percussion/Palpation: abdomen soft; abdomen nontender, no guarding and abdomen not rigid Neurologic: CN's II-XI intact bilaterally and moves all extremities; no focal motor deficits Motor/Sensory: no tremor Psychiatric: A+Ox3, euthymic affect Results & Data ([facility]) Vital Signs (Past 12 Hours) Vital Signs Temp Pulse Pulse Resp BP BP Pulse Ox 05/14/21 11:08 58 L 18 125/70 98 05/14/21 08:30 36.7 C 68 16 141/90 H 93 05/14/21 08:00 56 L 05/14/21 04:30 50 L 18 119/78 05/14/21 04:00 48 L 15 112/71 05/14/21 03:00 58 L 14 114/66 05/14/21 02:30 60 16 109/66 05/14/21 02:00 53 L 13 110/69 05/14/21 01:30 49 L 15 116/61
--- NOTE | 2021-05-14 14:03 | Discharge Summary ---
Date of Service May 14, 2021 Admission HPI Per Admitting Provider This is a 60 yo F who follows with the [facility]. About 2 weeks ago the patient noticed intermittent developing RUE pain which went down her shoulder into the wrist. This occurs at rest, and while she is sleeping. She went on vacation to [facility] with her daughter. Due to worsening symptoms in the RUE she sought care. She presented to [facility] May 03 and transferred to a larger facility for needs for cardiac cath later that evening. There she was diagnosed with CAD, NSTEMI with 99% occlusion in the RCA during cardiac catheterization, where RONI x 2 3.0 = 30 mm and 3.5 x 30 mm were placed. Pt reports another lesion (unknown) was 70% blocked, but due to being loaded with dye they could not stent this at the same time. During procedure a temporary pacemaker was placed at the right groin, which is now very bruised but improving. Her symptoms improved by May 05 when she was discharged and traveled home this past weekend. Last evening her symptoms started again when she was sleeping. Pt noticed her arms were crossed while she was lying on her side, and attempted to reposition but continued to have the pain. It seems to go up from her wrist into the shoulder. Her wrist is bruised s/p cath but improving, nonswollen, and without redness. She feels this pain is very similar to the way it was prior to her cardiac cath a week ago. Pt denies any other symptoms including SOB, fever, chills, sweats, chest pain, palpitations, flutter, thornton, dizziness/lightheadedness. Her concern today is regarding the lesions that was not stented last week. She took all medications this morning including brillinta, asa, and metoprolol. Statin is taken in the evening. Her daughter is present with her at bedside and supports the hx. She has a disc from the last hospital stay with what appears to be the cardiac cath procedure on it. She does not have a discharge summary because pt gave this copy to the [facility] yesterday. An ultrasound of the RUE was conducted in the ER here to rule out pseudoaneurysm and was negative for such. Her initial troponin in undetectable. 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 She has previous remote smoking hx, and recently was using nicotine replacement to help get off cigarrettes again. The last time she smoked was weeks ago. Once a week on Sunday she enjoys having a martini with her friends. Surgical Hx: cervix cone biopsy procedure, no other surgeries. Family Hx: Father had cerebral aneurysm in his 40s, cardiac bypass in his mid-late 50s, of lung cancer 8 years ago Mother : A&W, arthritis Sister: A&W, no known medical issues Admission Exam Per Admitting Provider General: awake, alert, no apparent distress Head: Normocephalic, atraumatic ENT: PERRL, EOMI, no pharyngeal exudate, mucous membranes moist Chest: Clear to auscultation, on room air, no adventitious breath sounds Cardiac: Regular rate and rhythm, no murmur, no JVD, normal peripheral pulses, good capillary refill, R wrist with ecchymosis yellowing, no erythema, no edema. : R femoral region with significant ecchymosis s/p pacemaker placement during cardiac cath. Abdominal: NABS x 4 quadrants, soft, nondistended, nontender to palpation, no rebound or guarding Extremities: As above re R wrist. Normal inspection, no peripheral edema or erythema, calfs nontender to palpation Psych: Normal mood and affect Neuro: AAO x 3, strength intact bilaterally and rated 5/5, no motor deficits, speech is clear, no peripheral sensory deficits Principal Diagnosis Right arm pain Coronary artery disease S/P Coronary stent placement in LAD (left anterior descending artery) Discharge Exam Constitutional + well hydrated; no acute distress Eyes PERRL, conjunctivae normal, anicteric sclerae ENMT external ear and nose normal, oropharynx normal Respiratory normal respiratory effort, lungs clear to auscultation Cardiovascular Rate/Rhythm: regular rate and regular rhythm S1 S2 Gastrointestinal (Abdomen) normal bowel sounds, soft, nontender, no hepatosplenomegaly Musculoskeletal no cyanosis or clubbing, extremities motor strength 5/5 Neurologic PERRL, EOMI, accommodation nl, no face palsy, no dysarthria Psychiatric A+Ox3, euthymic affect Discharge Data Allergies Allergy/AdvReac Type Severity Reaction Status Date / Time codeine Allergy Vomiting Verified 05/12/21 10:49 Consultations 05/12/21 12:29 ED Decision to Admit Stat 05/12/21 13:31 Consult Health Information Management Stat 05/12/21 13:32 Consult Cardiology Routine 05/13/21 17:40 Consult Cardiac Rehabilitation Routine Procedures Performed Operation Date: 05/13/21 13:00 Actual Procedures s Cineradiography w/Routine Exam - Moe Sorensen MD p Cath, Left with Cors and Vent - Moe Sorensen MD s Fraction Flow Pinon SGL Ves - Moe Sorensen MD p Drug Eluting Stent SGl Vessel - Moe Sorensen MD s Ultrasound Vascular Access - Moe Sorensen MD Ordered Studies 05/12/21 10:02 US arterial duplex UE RT Stat 05/13/21 14:32 CL Cath Imgs for PACS use only Routine Hospital Course (1) Right upper limb pain: (2) S/P cardiac cath: (3) Quit using tobacco in remote past: (4) HLD (hyperlipidemia): (5) Coronary artery disease: Presented with RUE pain Remote tobacco use with 20 pack year hx, recently on and off use of tobacco, last cigarette was weeks ago. Had been using nicotine lozenges. Reports h/o CABG in father as about same age as she is Pt with hx of cardiac cath recently where she had complex PCI of RCA with residual disease in LAD and circumflex Troponins negative Abnormal EKG Patient had LHC on 05/13/21 which showed severe multi-vessel CAD S/P PCI of mLAD with single RONI Currently on aspirin and ticagrelor Continue DAPT for 1 year Continue statin Patient's metoprolol was changed to metoprolol succinate 25mg daily Counselled on smoking cessation completely A1c is 5.4 Patient to follow up with PCP and Cardiology outpatient Total Time Total Time Spent Total Time Spent (In Minutes): 40 Total Time Includes: Examination of the Patient, Discharge Planning, Medication Reconciliation and Communication With Other Providers Discharge Plan Discharge Items Patient Disposition: Home - Self-Care Reason For Visit: Right arm pain Discharge Diagnosis: Right arm pain Coronary artery disease S/P Coronary stent placement in LAD (left anterior descending artery) Activity: Resume your previous activity Non-emergency contact: Primary Care Provider and Occupational Health Manager Call non-emergency contact if: you have any medication questions and your symptoms worsen Follow-up/Referrals: Vidya Bautista PA-C [Primary Care Provider] - Diet: Heart Healthy and Low Sodium (2gm) Addtl Attending Provider Instructions: Mrs Moore You came to the hospital complaining of right arm pain. You recently had same sy mptoms and was found to have coronary artery disease [facility] stent [facility] You were evaluated. You had a left heart catheterization and got another stent in left anterior descending artery. You are going to be on aspirin and ticagrelor for one year. Please continue atorvastatin daily. It is very important that you avoid all forms of smoking. Your metoprolol tartarate was changed to metoprolol succinate 25mg daily from tomorrow. Please ensure follow up with a Primary Doctor and Cardiology. It was a pleasure taking care of you. Pending Studies at Discharge: No Stand-Alone Forms: [facility] [employer], Smoking Cessation Medications and DC Order Prescriptions: New metoprolol succinate 25 mg Tablet Extended Release 24 Hr 25 mg PO QAM Qty: 30 RF: 0 Continued atorvastatin 40 mg tablet 40 mg PO HS RF: 0 aspirin 81 mg tablet,chewable 81 mg PO QAM RF: 0 [id number] mg Tablet 1 tab PO BID RF: 0 Brilinta 90 mg tablet 90 mg PO BID RF: 0 Discontinued metoprolol tartrate 50 mg tablet 25 mg PO BID RF: 0 Discharge Orders: Discharge Order (Routine); Ordered 05/14/21 Ordered By: Barbara Reed/Other Patient Handouts: Taking a Beta-Tommy Admission Data Admit Date/Time: 05/13/21 19:05 Attending Provider: Barbara Covarrubias I. Admit Provider: Silvano Rowland Primary Care Provider: Vidya Bautista Other Providers: Silvano Rowland ; Tony Baumann ; [facility] Other Interventions: Discharge Summary Assessment (RN) Last Done: 05/14/21 14:18
[2021-05-15] MEDS ORDERED: METOPROLOL SUCC 25MG EXT REL TAB PO SCH (09:00)
== END 2021-05-14 15:11 | disposition home or self-care (01) | DRG 247 ==
LOC: ED 09:48 → EDINP 09:48 → SUATTDRO 12:36 → EDINP 13:32 → 1E 05-13 17:13